=== PATIENT | male | born 1955 | race African-American/Black ===

== ENCOUNTER 2020-07-20 22:44 | Emergency (ER) | payer OTHER ==
[~2020-07-20] VITALS: Ht 180.3 cm; Wt 74.8 kg
--- NOTE | 2020-07-20 23:45 | NUR ---
PT NERIS FROM [facility]. PER EMS PT IS ALOC, FOR AN UNKOWN AMOUNT OF TIME. PT IS A&OX4. PT IS ABLE TO ANSWER QUESTIONS AND FOLLOW COMMANDS, BUT HAS SOME GARBLED SPEECH. PT HAS A HX OF CVA WITH RT SIDED WEAKNESS. PT RIGHT UPPER EXTREMITY IS CONTRACTED. PT BREATHING EVENLY AND UNLABORED. SKIN IS WARM AND INTACT. PT IS AFEBRILE. 18G PLACED IN LEFT AC. PT ATTACHED TO MONITOR AND POX. PT GIVEN BLANKET AND CALL LIGHT WITHIN REACH.
--- NOTE | 2020-07-21 00:22 | NUR ---
BLOOD GLUCOSE 91
--- NOTE | 2020-07-21 00:22 | NUR ---
urine and blood obtained and sent to lab
--- NOTE | 2020-07-21 00:32 | NUR ---
PT TAKEN TO CT
[2020-07-21 00:42] LABS: BASOPHILS % (AUTO) 0.2 % (0.0-2.0); EOSINOPHILS % (AUTO) 0.4 % (0.0-6.0); HEMATOCRIT 41 % (39-51); HEMOGLOBIN 13.5 g/dL (13.5-17.5); LYMPHOCYTES # (AUTO) 0.9 /CMM (0.8-4.8); LYMPHOCYTES % (AUTO) 17.8 % (20.0-44.0); MEAN CORPUSCULAR HGB CONC 33 g/dl (31.0-36.0); MEAN CORPUSCULAR VOLUME 92 fL (80-96); MONOCYTES # (AUTO) 0.7 /CMM (0.1-1.30); MONOCYTES % (AUTO) 13.2 % (2.0-12.0); NEUTROPHILS # (AUTO) 3.4 /CMM (1.8-8.9); NEUTROPHILS % (AUTO) 68.4 % (43.0-81.0); PLATELET COUNT (AUTO) 168 /CMM (150-450); RED BLOOD CELL COUNT(AUTO) 4.49 MIL/uL (4.5-6.0)
[2020-07-21 00:43] LABS: BILIRUBIN,URINE NEGATIVE (NEGATIVE); COLOR,URINE YELLOW (YELLOW); LEUKOCYTE ESTERASE ,URINE NEGATIVE (NEGATIVE); NITRITE, URINE NEGATIVE (NEGATIVE); PH,URINE 5.5 (5.0-8.0); PROTEIN,URINE TRACE mg/dl (NEGATIVE); UGLUCOSE NEGATIVE (NEGATIVE); UROBILINOGEN,URINE 0.2 EU/dL (0.2)
[2020-07-21 00:51] LABS: BACTERIA,URINE None seen /HPF (None Seen); MUCUS,URINE Few /LPF (None Seen); RBC,URINE 0-2 /HPF (0-2); SQUAMOUS EPITHELIAL CELL,UR Few /HPF (None Seen); WBC,URINE 0-2 /HPF (0-3)
[2020-07-21 00:52] LABS: SERUM AMMONIA 9 umol/L (11-32)
[2020-07-21 01:05] LABS: THYROID STIMULATING HORMONE 0.844 uIU/mL (0.358-3.74)
[2020-07-21 01:42] LABS: CALCIUM, SERUM 8.7 mg/dL (8.5-10.1); CARBON DIOXIDE 26 mmol/L (21-32); CHLORIDE 97 mmol/L (98-107); GLUCOSE 104 mg/dL (74-106); POTASSIUM 3.9 mmol/L (3.5-5.1); SODIUM SERUM 136 mmol/L (136-145); UREA NITROGEN, BLOOD 15 mg/dL (7-18)
[2020-07-21 01:47] LABS: ALANINE AMINOTRANSFERASE 30 U/L (12-78); ALBUMIN 3.6 g/dL (3.4-5.0); ALKALINE PHOSPHATASE 95 U/L (46-116); ASPARTATE AMINOTRANSFERASE 36 U/L (15-37); BILIRUBIN,DIRECT 0.2 mg/dL (0.0-0.2); BILIRUBIN,TOTAL 0.3 mg/dL (0.2-1.0); TOTAL PROTEIN, SERUM 7.5 g/dL (6.4-8.2)
[2020-07-21 01:48] LABS: ACETAMINOPHEN 0 ug/ml (10-30)
[2020-07-21 01:55] LABS: ALCOHOL, BLOOD < 3 mg/dL (0-0)
[2020-07-21] MEDS ORDERED: SPIR25TA6 PO (02:13)
[2020-07-21] MEDS ORDERED: DICL100G16 TP (02:13)
[2020-07-21] MEDS ORDERED: ATOR80TA PO (02:13)
[2020-07-21] MEDS ORDERED: OXCA300T15 PO (02:13)
[2020-07-21] MEDS ORDERED: CARV3.122 PO (02:13)
[2020-07-21] MEDS ORDERED: PANT20TA17 PO (02:13)
[2020-07-21] MEDS ORDERED: HYDR-500 PO (02:13)
[2020-07-21] MEDS ORDERED: METF-440 PO (02:13)
[2020-07-21] MEDS ORDERED: LISI-607 PO (02:13)
[2020-07-21] MEDS ORDERED: FLUO20CA42 PO (02:13)
[2020-07-21] MEDS ORDERED: BACL5TAB PO (02:13)
[2020-07-21] MEDS ORDERED: SENN-261 PO (02:13)
[2020-07-21] MEDS ORDERED: APIX5TAB PO (02:13)
--- NOTE | 2020-07-21 03:34 | NUR ---
CALLED [facility] AND GAVE REPORT TO TANIA DANIELS
--- NOTE | 2020-07-21 03:44 | NUR ---
CALLED CALL THE CAR. TRIP RESERVATION IS [id number]. AWAITING CALL BACK
--- NOTE | 2020-07-21 03:50 | NUR ---
[facility] HAND SCREEN PRINTER ETA [id number]
--- NOTE | 2020-07-21 06:06 | NUR ---
NEW ETA FOR [facility] 45MIN
--- NOTE | 2020-07-21 07:28 | NUR ---
GAVE REPORT TO TANIA DEL ROSARIO FOR [facility]
--- NOTE | 2020-07-21 08:28 | NUR ---
REPORT GIVEN TO BUS VAN DRIVER. PATIENT A/OX4, BREATHING EVEN AND UNLABORED, NO SOB NOTED. NEEDS ATTENDED.
[2020-07-21 08:36] VITALS: BP 130/80
--- NOTE | 2020-07-25 10:15 | NUR ---
CALLED [facility] FOR COVID RESULT NO ANSWER. PER STAFF PHONE IS BROKEN.
== END 2020-07-21 08:38 ==
LOC: ER 22:49
DX: Z03.89 Encounter for observation for other suspected diseases and conditions ruled out (principal); U07.1 COVID-19; I69.951 Hemiplegia and hemiparesis following unspecified cerebrovascular disease affecting right dominant side; I69.920 Aphasia following unspecified cerebrovascular disease; I11.0 Hypertensive heart disease with heart failure; I50.9 Heart failure, unspecified; Z79.01 Long term (current) use of anticoagulants; Z79.899 Other long term (current) drug therapy; E78.00 Pure hypercholesterolemia, unspecified; G40.909 Epilepsy, unspecified, not intractable, without status epilepticus
CPT/HCPCS: 36415; 70450; 71045; 80048; 80076; 80299; 80307; 80320; 81001; 82140; 82962; 84443; 84484; 85025; 85730; 87081; 87086; 87426; 93005; 99285; C9803; U0003; G0480